=== PATIENT | female | born 1965 | race Caucasian/White ===

== ENCOUNTER 2022-07-13 22:57 | Observation (INO) | payer MEDICARE, MEDICAID, SELFPAY ==
[2022-07-13 23:04] VITALS: BP 85/53; PULSE 109; RESP 16; TEMP 36.3; O2SAT 94; BMI 19.7
--- NOTE | 2022-07-13 23:11 | ED_ITS ---
HPI - Fall General: Chief Complaint: Fall Stated Complaint: fall 3 days ago, back and side pain Time Seen by Provider: 07/13/22 23:11 History of Present Illness: 56-year-old female comes in today for complaints of generalized body ache and soreness. Patient reports over the weekend she was in the shower and slipped and fell hurting her back. Patient has a history of COPD, rheumatoid arthritis, Raynaud's phenomena, chronic smoker. Patient has darkening of her third and fourth digit on her right hand which she attributes to her Raynaud's phenomena. Patient has a dry necrotic area to the distal third finger. Patient does admit to using heating pads to the tops of her knees and her hands routinely. Patient does have discoloration to her hands and knees. Patient appears chronically ill. Patient responds appropriately to questions. Patient appears in mild pain. Patient reports all she uses is inhalers routinely for her COPD, but does not take any medicines for her rheumatoid arthritis. Patient has a history of erythromycin allergy but can take azithromycin. Reports that erythromycin just causes stomach upset. Associated symptoms-after fall: Denies chest pain Review of Systems Const: Reports: body aches Eyes: Denies: change in vision ENMT: Denies: throat pain Card: Denies: chest pain Resp: Denies: dyspnea GI: Denies: nausea or vomiting Skin/Breast: Reports: changes in skin color and other [facility] ED PFSH: Medical History (Updated 07/14/22 @ 02:20 by JEN Marcus) COPD (chronic obstructive pulmonary disease) Hepatitis RA (rheumatoid arthritis) Raynaud disease Surgical History (Updated 07/14/22 @ 02:15 by Bruno Desai MD) H/O neck surgery H/O: hysterectomy History of Social History (Updated 07/14/22 @ 02:20 by Bruno Desai MD) Smoking and tobacco status: current every day smoker Alcohol intake: former Physical Exam Const: COMMON NORMALS: alert HENMT: COMMON NORMALS: normocephalic HEAD & SCALP: normocephalic Neck/C-Spine: COMMON NORMALS: full ROM Resp: COMMON NORMALS: normal respiratory effort AUSCULTATION: rhonchi Cardio: COMMON NORMALS: regular rate and regular rhythm RATE: regular rate RHYTHM: regular rhythm GI: COMMON NORMALS: Soft to palpation and non-tender PALPATION: Yes Soft to palpation : COMMON NORMALS: Yes no CVA tenderness BLADDER/KIDNEY EXAM: Yes no CVA tenderness Back/Pelvis: COMMON NORMALS: no CVA tenderness THORACIC SPINE/UPPER BACK: No paraspinal muscle tenderness LUMBAR SPINE/LOWER BACK: No paraspinal muscle tenderness Extremity: RIGHT UPPER EXTREMITY: Yes hand & digits (Third and fourth digit are discolored, dry lesion distal third digit) Right hand and digits: Yes inspection, Yes palpation and Yes ROM exam Neuro: SENSORIUM/ORIENTATION: Yes alert Psych: COMMON NORMALS: cooperative Skin: COMMON NORMALS: negative for turgor normal GENERAL SKIN EXAM: decreased turgor Course Vital Signs: Vital signs: Vital Signs Temperature 97.4 F L 07/13/22 23:04 Pulse Rate 109 H 07/14/22 02:11 Respiratory Rate 21 H 07/14/22 02:11 Blood Pressure 82/60 07/14/22 02:11 Pulse Oximetry 92 07/14/22 02:11 Oxygen Delivery Me thod 07/14/22 02:11 MDM - Fall Medical Decision Making Patient came in today for weakness and fall on Monday. Since then she has had increasing pain to her right back. Patient did report some pain at that time of the fall. Patient has a history of rheumatoid arthritis, COPD, and Raynaud's phenomenon. On exam patient has decreased breath sounds in bilateral bases. Skin is warm and dry. Patient does have some discoloration in the hands. Initial blood pressure is 85 systolic, pulse oxygen is 94% on room air, heart rate is 109, patient is afebrile. Differential diagnosis includes sepsis, pneumonia, rib fracture, pneumothorax, compression fracture of the spine. Chest x-ray notes a right lower lobe pneumonia. Sodium was 134, potassium 3.3, CRP was 224, sed rate was 30. Reviewed patient with Dr. Schwartz he recommend we contact the hospitalist and discuss admission. Discussed admission with Dr. Desai who agreed to see patient for admission. Patient needs antibiotics, IV fluids, and monitoring for further decompensation from right lower lobe pneumonia. Lab Data : 07/14/22 01:18 07/14/22 01:18 Radiology Impressions Chest X-Ray 07/13/22 23:23 IMPRESSION: 1. Negative for traumatic injury to the chest. 2. Right lower lobe pneumonia. 3. Left mid lung field suspected somewhat focal airspace opacity may reflect a small pneumonic infiltrate, consider interval follow-up exam to ensure resolution. Pelvis X-Ray 07/13/22 23:23 IMPRESSION: 1. Negative for fracture or dislocation, if concern for fracture remains clinically consider further evaluation with a CT given patient's somewhat decreased bone mineral density. 2. Goim-zb-uxhnicfs constipation without bowel dilation to indicate obstruction. Lumbar Spine X-Ray 07/13/22 23:26 IMPRESSION: 1. Negative for fracture or dislocation. 2. Multilevel disc space narrowing and productive degenerative endplate changes throughout the spine. 3. Lumbar spine levoscoliosis. 4. Right lower lobe pneumonia suspected, chest x-ray could better evaluate this. Laboratory Results WBC 13.1 10^3/uL (4.0-10.0) H 07/14/22 01:18 Corrected WBC Cancelled 07/13/22 23:20 RBC 4.75 10^6/uL (4.1-5.3) 07/14/22 01:18 Hgb 13.6 g/dL (11.5-15.3) 07/14/22 01:18 Hct 42.6 % (37.0-47.0) 07/14/22 01:18 MCV 89.7 fl (81-99) 07/14/22 01:18 MCH 28.6 pg (28.0-34.0) 07/14/22 01:18 MCHC 31.9 g/dL (30.0-36.0) 07/14/22 01:18 RDW 13.6 % (12.1-15.1) 07/14/22 01:18 Plt Count 141 10^3/cmm (130-400) 07/14/22 01:18 MPV 11.1 fL (7.4-10.4) H 07/14/22 01:18 Gran % Cancelled 07/13/22 23:20 Neut % (Auto) 88.1 % 07/14/22 01:18 Lymph % (Auto) 4.7 % 07/14/22 01:18 [place] % (Auto) 5.7 % 07/14/22 01:18 Eos % (Auto) 0.1 % 07/14/22 01:18 Baso % (Auto) 0.9 % 07/14/22 01:18 Neut # (Auto) 11.52 10^3/uL (1.8-7.7) H 07/14/22 01:18 Lymph # (Auto) 0.6 10^3/uL (0.8-4.8) L 07/14/22 01:18 [place] # (Auto) 0.8 10^3/uL (0.2-0.9) 07/14/22 01:18 Eos # (Auto) 0.0 10^3/uL (0.0-0.8) 07/14/22 01:18 Baso # (Auto) 0.1 10^3/uL (0.0-0.1) 07/14/22 01:18 Absolute Gran (auto) Cancelled 07/13/22 23:20 Nucleated RBC % (auto) 0 % 07/14/22 01:18 Nucleated RBCs # 0.0 /100WBC 07/14/22 01:18 ESR 30 mm/hr (0-15) H 07/14/22 01:18 Sodium 134 mmol/L (136-145) L 07/14/22 01:18 Potassium 3.3 mmol/L (3.5-5.1) L 07/14/22 01:18 Chloride 97 mmol/L (98-107) L 07/14/22 01:18 Carbon Dioxide 23 mmol/L (22-29) 07/14/22 01:18 Anion Gap 17.3 (5-19) 07/14/22 01:18 BUN 27 mg/dL (6-20) H 07/14/22 01:18 Creatinine 0.8 mg/dL (0.5-0.9) 07/14/22 01:18 GFR Calculation 74.2 mL/min (90-130) L 07/14/22 01:18 Glucose 83 mg/dL (65-115) 07/14/22 01:18 Calculated Osmolality 282 mOsm/kg (285-295) L 07/14/22 01:18 Lactic Acid 1.8 mmol/L (0.5-2.2) 07/13/22 01:18 Calcium 8.8 mg/dL (8.5-10.5) 07/14/22 01:18 Total Bilirubin 1.1 mg/dL (0.15-1.2) 07/14/22 01:18 AST 47 U/L (0-32) H 07/14/22 01:18 ALT 50 U/L (0-33) H 07/14/22 01:18 Alkaline Phosphatase 234 U/L (35-105) H 07/14/22 01:18 C-Reactive Protein 224.2 mg/L (0.0-4.9) H 07/14/22 01:18 Total Protein 6.7 g/dL (6.6-8.7) 07/14/22 01:18 Albumin 2.8 g/dL (3.5-5.2) L 07/14/22 01:18 Globulin 3.9 g/dL (1.3-4.6) 07/14/22 01:18 Urine Color [place] (Yellow) 07/14/22 01:36 Urine Appearance Clear (CLEAR) 07/14/22 01:36 Urine pH 5 (5-7) 07/14/22 01:36 Ur Specific [place] 1.010 (1.005-1.030) 07/14/22 01:36 Urine Protein 1+ (Negative) H 07/14/22 01:36 Urine Glucose (UA) Norm (Normal) 07/14/22 01:36 Urine Ketones 1+ (Negative) H 07/14/22 01:36 Urine Blood Neg (Negative) 07/14/22 01:36 Urine Nitrate Positive (Negative) H 07/14/22 01:36 Urine Bilirubin 1+ (Negative) H 07/14/22 01:36 Urine Urobilinogen 8 mg/dL (Negative) H 07/14/22 01:36 Ur Leukocyte Esterase Trace (Negative) H 07/14/22 01:36 Urine RBC 0-4 /hpf (0-2) H 07/14/22 01:36 Urine WBC 5-10 /hpf (0-5) H 07/14/22 01:36 Ur Squamous Epith Cells 5-10 /hpf (0-5) H 07/14/22 01:36 Ur Transition Epith Cell 0-4 /hpf 07/14/22 01:36 Amorphous Sediment Not Reportable 07/14/22 01:36 Urine Bacteria 1+ /hpf (NONE) H 07/14/22 01:36 Discharge Plan Discharge Patient Disposition: Admitted As Inpatient Clinical Impression: Pneumonia Qualifiers: Pneumonia type: due to unspecified organism Laterality: right Lung location: lower lobe of lung Qualified Code(s): J18.9 - Pneumonia, unspecified organism Condition: Stable Coding Level of Care Code ED Returns Clerk for g Fwd Exam Comprehensive
--- NOTE | 2022-07-13 23:23 | XRR_ITS ---
PROCEDURE INFORMATION: Exam: XR Pelvis Exam date and time: 07/14/2022 12:30 AM Age: 56 years old Clinical indication: Pelvic pain; Additional info: Fall injury TECHNIQUE: Imaging protocol: Radiologic exam of the pelvis. Views: 1 or 2 view. COMPARISON: No relevant prior studies available. FINDINGS: Bones/joints: Unremarkable. No acute fracture. Soft tissues: Unremarkable. Gastrointestinal tract: Pgwy-eb-sstshwas constipation without bowel dilation to indicate obstruction. XR/XR pelvis 1-2V* [id number] IMPRESSION: 1. Negative for fracture or dislocation, if concern for fracture remains clinically consider further evaluation with a CT given patient's somewhat decreased bone mineral density. 2. Skzr-sx-pviwitwv constipation without bowel dilation to indicate obstruction.
--- NOTE | 2022-07-13 23:23 | XRR_ITS ---
PROCEDURE INFORMATION: Exam: XR Chest Exam date and time: 07/14/2022 12:28 AM Age: 56 years old Clinical indication: Pain; Chest pressure; Additional info: Fall TECHNIQUE: Imaging protocol: Radiologic exam of the chest. Views: 2 views. COMPARISON: No relevant prior studies available. FINDINGS: Lungs: Right lower lobe pneumonia. Left mid lung field suspected somewhat focal airspace opacity may reflect a small pneumonic infiltrate, consider interval follow-up exam to ensure resolution. Pleural spaces: Unremarkable. No pleural effusion. No pneumothorax. Heart/Mediastinum: Unremarkable. No cardiomegaly. Bones/joints: Unremarkable. XR/XR chest 2V* [id number] IMPRESSION: 1. Negative for traumatic injury to the chest. 2. Right lower lobe pneumonia. 3. Left mid lung field suspected somewhat focal airspace opacity may reflect a small pneumonic infiltrate, consider interval follow-up exam to ensure resolution.
--- NOTE | 2022-07-13 23:26 | XRR_ITS ---
PROCEDURE INFORMATION: Exam: XR Lumbosacral Spine Exam date and time: 07/14/2022 12:33 AM Age: 56 years old Clinical indication: Low back pain; Additional info: Fall injury TECHNIQUE: Imaging protocol: Radiologic exam of the lumbosacral spine. Views: 2 or 3 views. COMPARISON: CR (PELVIS, ) 07/14/2022 12:30 AM FINDINGS: Bones/joints: Multilevel disc space narrowing and productive degenerative endplate changes throughout the spine. Lumbar spine levoscoliosis. Soft tissues: Unremarkable. Lungs: Right lower lobe pneumonia suspected, chest x-ray could better evaluate this. XR/XR lumbar spine 2-3V* [id number] IMPRESSION: 1. Negative for fracture or dislocation. 2. Multilevel disc space narrowing and productive degenerative endplate changes throughout the spine. 3. Lumbar spine levoscoliosis. 4. Right lower lobe pneumonia suspected, chest x-ray could better evaluate this.
[2022-07-14] VITALS (100 sets, daily range): BP systolic 78–108; BP diastolic 48–71; PULSE 74–110; RESP 4–28; TEMP 36.3–37.1; O2SAT 86–95; BMI 19.7
[2022-07-14] MEDS: HYDROcodone-acetaminophen 5-325 mg Tablet 1 TAB PO (00:33)
[2022-07-14] MEDS: sodium chloride 0.9% 1,000 ML 999 ML IV ×2 (01:20→04:12)
[2022-07-14] MEDS: ondansetron 2 mg/ML SDV 2 mL 4 MG IVP ×2 (01:24→06:08)
[2022-07-14 01:38] LABS: Erythrocyte Sedimentation Rate 30 mm/hr (0-15)
[2022-07-14 01:50] LABS: Lactic Sepsis W/Reflex 1.8 mmol/L (0.5-2.2)
[2022-07-14 01:51] LABS: Alanine Aminotransferase 50 U/L (0-33); Albumin Level 2.8 g/dL (3.5-5.2); Alkaline Phosphatase 234 U/L (35-105); Anion Gap 17.3 (5-19); Aspartate Amino Transferase 47 U/L (0-32); Blood Urea Nitrogen 27 mg/dL (6-20); C Reactive Protein 224.2 mg/L (0.0-4.9); Calcium 8.8 mg/dL (8.5-10.5); Carbon Dioxide 23 mmol/L (22-29); Chloride 97 mmol/L (98-107); Globulin 3.9 g/dL (1.3-4.6); Glomerular Filtration Rate 74.2 mL/min (90-130); Glucose 83 mg/dL (65-115); Osmolality Calculated 282 mOsm/kg (285-295); Potassium 3.3 mmol/L (3.5-5.1); Sodium 134 mmol/L (136-145); Total Bilirubin 1.1 mg/dL (0.15-1.2); Total Protein 6.7 g/dL (6.6-8.7)
[2022-07-14] MEDS: cefTRIAXone 1,000 MG in sodium chloride 0.9% (plus) 50 ML 100 MG IV (01:56)
[2022-07-14] MEDS: morphine 4 mg/mL SDV 1 mL 2 MG IVP ×3 (02:03→22:51)
[2022-07-14 02:13] LABS: Basophils # 0.1 10^3/uL (0.0-0.1); Basophils % 0.9 %; Eosinophils % 0.1 %; Hematocrit 42.6 % (37.0-47.0); Hemoglobin 13.6 g/dL (11.5-15.3); Lymphocytes # 0.6 10^3/uL (0.8-4.8); Lymphocytes % 4.7 %; Mean Corpuscular HGB Conc 31.9 g/dL (30.0-36.0); Mean Corpuscular Hemoglobin 28.6 pg (28.0-34.0); Mean Corpuscular Volume 89.7 fl (81-99); Mean Platelet Volume 11.1 fL (7.4-10.4); Monocytes # 0.8 10^3/uL (0.2-0.9); Monocytes % 5.7 %; Neutrophils # 11.52 10^3/uL (1.8-7.7); Neutrophils % 88.1 %; Nucleated Red Blood Cells % 0 %; Platelet Count 141 10^3/cmm (130-400); Red Blood Count 4.75 10^6/uL (4.1-5.3); Red Cell Distribution Width 13.6 % (12.1-15.1); White Blood Count 13.1 10^3/uL (4.0-10.0)
[2022-07-14 02:14] LABS: Slide Review Slide Review Perform
[2022-07-14 02:17] LABS: Urine Appearance Clear (CLEAR); Urine Color Orange (Yellow)
[2022-07-14 02:18] LABS: Add Urine Microscopic? YES; Bilirubin Urine 1+ (Negative); Blood Urine Neg (Negative); Glucose Urine UA Norm (Normal); Ketones Urine 1+ (Negative); Leukocyte Esterase Urine Trace (Negative); Nitrate Urine Positive (Negative); Protein Urine 1+ (Negative); Urobilinogen Urine 8 mg/dL (Negative); pH Urine 5 (5-7)
[2022-07-14 02:22] LABS: Add Urine Culture? Yes; Bacteria Urine 1+ /hpf; RBC Urine 0-4 /hpf (0-2); Transitional Epi Cells Urine 0-4 /hpf
[2022-07-14] MEDS: azithromycin 500 MG in sodium chloride 0.9% 250 ML 250 MG IV (02:29)
[2022-07-14 02:33] LABS: Cortisol Random 22.38 ug/dL (2.47-19.5)
[2022-07-14 02:42] LABS: SARS Covid-2 Antigen negative (Negative)
--- NOTE | 2022-07-14 02:44 | PM.HP ---
Providers/Chief Complaint Admitting Physician: Bruno Desai Primary Care Provider: LARRY Lane Chief Complaint: fall 3 days ago, back and side pain History of Present Illness Pleasant 56-year-old lady with history of Raynaud's disease, rheumatoid arthritis, smoking addiction, presents to the hospital due to several days of feeling unwell, she has been having productive cough, she also fell in the bathroom when she was trying to clean an area of swelling on the mid posterior right forearm which has been swelling over the last several days. There is no ulceration or drainage at that area. She reports also has been having issues with Raynaud's disease for a long time. About a week ago she states she was washing dishes and scraped the tip of the right middle finger, which had swelled up, had some bruising distally. Callus formation distally, but feels has never really healed up well. He has had some persistent swelling and paresthesia in it. She states that she still smokes, has been trying to cut down, currently down to 3 cigarettes/day. In the ER she is noted hypotensive, blood pressure 85/53, has been receiving a bolus. Currently arterial pressure 62 mmHg. She does feel also like she has been having a UTI. Review of Systems Const: Denies: fever(s), chills, body aches or malaise Eyes: Denies: change in vision, eye discomfort or eye redness ENMT: Denies: throat pain, oral sores or ear or mastoid pain Card: Denies: chest pain, edema, pre-syncope or dyspnea on exertion Resp: Denies: dyspnea, productive cough, change in phlegm color or hemoptysis GI: Denies: abdominal pain, nausea, vomiting, diarrhea, constipation, hematochezia or melena : Denies: flank pain, urinary frequency or hematuria Musc: Denies: back pain, joint swelling or joint redness Skin/Breast: Denies: rash or new lesions Neuro: Denies: headache(s), numbness in extremities, weakness in extremities, dizziness, confusion or seizure-like activity Endo: Denies: polyuria or polydipsia Manoj/Lymph: Denies: easy bleeding or tender lymph nodes All/Imm: Denies: urticaria or tongue swelling Medications/Allergies Allergies Allergy/AdvReac Type Severity Reaction Status Date / Time erythromycin base Allergy Unknown Unknown Verified 11/10/22 02:17 propoxyphene [From Darvon-N] Allergy Unknown Unknown Verified 07/14/22 02:18 PFSH Acute PFSH: Medical History (Updated 07/14/22 @ 02:53 by Bruno Desai MD) COPD (chronic obstructive pulmonary disease) Hepatitis RA (rheumatoid arthritis) Raynaud disease Surgical History (Updated 07/14/22 @ 02:15 by Bruno Desai MD) H/O neck surgery H/O: hysterectomy History of Family History (Updated 07/14/22 @ 02:57 by Bruno Desai MD) Mother CHF (congestive heart failure) Social History (Updated 07/14/22 @ 03:06 by Bruno Desai MD) Smoking and tobacco status: current every day smoker Alcohol intake: former Substance/Drug Use: never Lives independently: Yes Household members: other Details: daughter Marital status: Vitals/I&O/Wt Last Vital Signs Temp 97.4 F L 07/13/22 23:04 Pulse 109 H 07/14/22 02:11 Resp 21 H 07/14/22 02:11 BP 82/60 07/14/22 02:11 Pulse Ox 92 07/14/22 02:11 O2 Del Method 07/14/22 02:11 Weight last 48 hrs Weight 55.338 kg Physical Exam Const: COMMON NORMALS: patient oriented x3 and alert GENERAL APPEARANCE: cooperative ORIENTATION/CONSCIOUSNESS: Yes awake HENMT: COMMON NORMALS: oropharynx normal Neck/C-Spine: COMMON NORMALS: no JVD Resp: COMMON NORMALS: normal respiratory effort and clear to auscultation bilaterally AUSCULTATION: clear to auscultation bilaterally Cardio: COMMON NORMALS: no JVD, regular rhythm, S1 normal heart sound present, S2 normal heart sound present and No murmurs present (Cardio) RHYTHM: regular rhythm HEART SOUNDS: S1 normal heart sound present and S2 normal heart sound present GI: COMMON NORMALS: Normal to inspection, nondistended, normoactive bowel sounds present, Soft to palpation and non-tender PALPATION: Yes Soft to palpation Extremity: COMMON NORMALS: no joint enlargement and no pedal edema Neuro: COMMON NORMALS: patient oriented x3 and moves all extremities SENSORIUM/ORIENTATION: Yes alert Skin: GENERAL SKIN EXAM: erythema (hands and feet) LESIONS: lesion noted (callus/dry ulceration distal 3rd finger. Swelling of digit. Distal bruising) OTHER: Round area of swelling mid-post R forarm, no fluctuance, no ulceration Sepsis: Is patient septic: Yes Focused sepsis exam performed: Yes Data : 07/14/22 01:18 07/14/22 01:18 Micro: Microbiology 07/13/22 01:20 Blood Culture - Preliminary Blood SPECIMEN COLLECTED 07/13/22 01:18 Blood Culture - Preliminary Blood SPECIMEN COLLECTED A&P Assessment and plan (1) Sepsis: Sepsis with leukocytosis 13.1, sinus tachycardia 109. Possible septic shock, hypotensive. He reports chronic hypotension, low blood pressure appears may be lower than usual. With possible endorgan injury with transaminitis, BUN elevation. Lactic acid not elevated. Blood cultures collected, received ceftriaxone, azithromycin. Continue Lozano antibiotics for pulmonary source with right lower lobe pneumonia. Additionally assess right forearm around area of swelling for any abscess. Additionally assess right hand third finger due to persistent swelling, paresthesia, fingertip ulceration. Additionally possible UTI, she subjectively feels like she is having UTI. UA with positive nitrate, 5-10 WBC. 1+ bacteria. Urine culture in process. Complete fluid bolus. At risk of adrenal insufficiency as well with history of RA, COPD, past steroid therapy. We will give 1 dose of hydrocortisone at this time given persistent hypotension, assess serum cortisol level. (2) Pneumonia: Right lower lobe. As above. Collect sputum cultures, urine bacterial antigens. Check MRSA PCR. Rapid antigen COVID-19 negative, does not have other symptoms that may suggest COVID Qualifiers: Laterality: right Lung location: lower lobe of lung Pneumonia type: due to unspecified organism Qualified Code(s): J18.9 - Pneumonia, unspecified organism (3) Localized swelling of right forearm: Tender to touch. No fluctuance. No ulceration or drainage. Assess limited soft tissue/extremity ultrasound to exclude abscess. (4) Ulceration localized to fingertip: She states for 1-2 weeks, with some swelling of the right third finger. Some distal bruising. Paresthesia. She does have quite severe Raynaud's. She states that it started with abrasion while washing dishes. She does smoke. May be secondary to severe Raynaud's, or possibly raise concern for thromboangiitis obliterans/Buerger's disease. Will additionally assess with CT of the hand, and assess arterial duplex, segmental pressures including finger pressure. She needs to quit smoking, which she is aware, states that she has been cutting down, currently down to 3 cigarettes a day. Continue to encourage complete cessation. (5) Transaminitis: Unclear duration of transaminitis. Hepatitis noted in one of the old charts. We will check acute hepatitis panel. Follow-up liver parameters. Additionally possibility of shock liver with hypotension, sepsis, possible septic shock. As above. Does have alkaline phosphatase elevation as well, T bili normal. Does not have abdominal tenderness. Follow-up level. Will obtain gallbladder ultrasound. (6) Hypotension: Reports at home usually chronic hypotension, blood pressures on a good day run in low 90s. However currently appears lower than usual. MAP down to 62. Complete bolus and additional management as above for possible septic shock. (7) Smoking addiction: Discussed smoking cessation with her for 4 minutes. She has been cutting down and is down to 3 cigarettes a day. Encourage complete cessation. Nicotine replacement as needed. (8) UTI (urinary tract infection): Subjectively feels like she is having UTI. UA with nitrate positive, 5-10 WBC, 1+ bacteria. Urine culture in process. Ceftriaxone. (9) Fall: Fall at home, suspect secondary to hypotension. Bedrest at this time. Monitor blood pressures. Consider PT assessment once she is more stable. (10) Constipation: Incident noted on imaging. We will add bowel regimen. Plan Hypokalemia: Replace. Check magnesium. DDD RA: Not currently taking any medications Raynaud's disease COPD Hepatitis history: Acute hepatitis panel requested, history noted incidentally in old chart. Will need follow-up. Attestations Medical Necessity Statement*: Admission of over 2 midnights anticipated versus management of sepsis, septic shock, pneumonia, additional comorbidities as above. Critical Care Time: The high probability of a clinically significant, sudden or life threatening deterioration of the patient's hemodynamic, infectious disease, system(s) required my full and direct attention, intervention and personal management. The critical care time is as shown. This time is in addition to time spent performing any reported procedures but includes the following: x Data and vital sign review and interpretation x Patient assessment, examination and intervention x Documentation x Medication orders and management Critical Care Time (min): 50 Coding Level of Care Code Acute Ammonium Hydroxide Operator for Chg Fwd Exam Comprehensive Diagnoses Sepsis A41.9 Pneumonia J18.9 Laterality: right Lung location: lower lobe of lung Pneumonia type: due to unspecified organism Localized swelling of right forearm R22.31 Ulceration localized to fingertip L98.499 Transaminitis R74.01 Hypotension I95.9 Smoking addiction F17.200 UTI (urinary tract infection) N39.0 Fall W19.XXXA Constipation K59.00
--- NOTE | 2022-07-14 03:48 | USR_ITS ---
PROCEDURE INFORMATION: Exam: US Unlisted Ultrasound Procedure Exam date and time: 07/14/2022 4:53 AM Age: 56 years old Clinical indication: Pain: Painful lump due to spider bite; Patient HX: Painful lump posterior right forearm C/O spider bite; Additional info: R forearm swelling, assess for abscess TECHNIQUE: Imaging protocol: Unlisted ultrasound procedure (eg, diagnostic, interventional). COMPARISON: No relevant prior studies available. FINDINGS: Procedural imaging: Examination is based on the submission of 5 images. A measured oval isoechoic or slightly hypoechoic heterogeneous partially marginated structure within the subcutaneous soft tissues of the labeled posterior forearm measures 1.6 x 0.9 x 1.8 cm. The lesion does not demonstrate fluid echogenicity or cystic structure. Limited Doppler assessment without hypervascularity. US/US soft tissue/extremity [id number] IMPRESSION: Oval heterogeneous non-cystic and non fluid containing soft tissue area echogenicity change or nonspecific inflammatory focus.
--- NOTE | 2022-07-14 03:48 | CTR_ITS ---
PROCEDURE INFORMATION: Exam: CT Right Upper Extremity With Contrast, Hand Exam date and time: 07/14/2022 4:15 AM Age: 56 years old Clinical indication: Fingers; Right; Patient HX: Patient with raynauds was washing dishes with hot water and accidentally burned the tip of RT 3rd digit. Small burn wound with redness and swelling to distal phalange. ; Additional info: Assess for any abscess R 3rd finger TECHNIQUE: Imaging protocol: Computed tomography of the Right upper extremity with contrast. Exam focused on the hand. Radiation optimization: All CT scans at this facility use at least one of these dose optimization techniques: automated exposure control; mA and/or kV adjustment per patient size (includes targeted exams where dose is matched to clinical indication); or iterative reconstruction. Contrast material: OMNI 350; Contrast volume: 100 ml; Contrast route: INTRAVENOUS (IV); COMPARISON: No relevant prior studies available. RADIATION DOSE METRICS: Total DLP (mGy-cm): 258.81 FINDINGS: Bones/joints: Irregularity and potential partial absence of the cortex at the distal margin of the distal phalanx 3rd digit underlying an area of blunted soft tissue distortion or wound/volume loss. Soft tissues: Diffuse soft tissue edema or thickening of multiple digits of the right hand. Diffuse extensive soft tissue vascular calcifications. No soft tissue gas. Other findings: No definite peripherally enhancing fluid collection to suggest small abscess although MRI would yield a higher level of diagnostic sensitivity. CT/CT hand [place] w con [id number] IMPRESSION: 1. Multiple digit soft tissue thickening or edema slightly more accentuated at the 3rd digit dorsally and distally. 2. No definite peripherally enhancing fluid collection to suggest abscess. 3. Lucency and potential cortical thinning or destruction of the distal margin of the distal phalanx 3rd digit which may be suggestive of potential early changes of osteomyelitis. Adjacent soft tissue distortion and irregularity. Consider MRI for a higher level of diagnostic specificity. Findings require correlation to CR series. 4. Extensive soft tissue linear calcifications which may be vascular in origin.
--- NOTE | 2022-07-14 03:48 | USR_ITS ---
PROCEDURE INFORMATION: Exam: US Abdomen, Limited; Right Upper Quadrant Exam date and time: 07/14/2022 4:31 AM Age: 56 years old Clinical indication: Abdominal pain; Flank; Right; Prior surgery; Surgery date: 6+ months; Surgery type: [place] 2017; Additional info: Elev ap, sepsis, septic shock TECHNIQUE: Imaging protocol: Real time ultrasound of the abdomen with image documentation. Limited exam focused on the right upper quadrant. COMPARISON: No relevant prior studies available. FINDINGS: Pleural spaces: Right pleural effusion. Liver: Longitudinal liver diameter 17.4 cm. Gallbladder: The gallbladder is not visualized by history submitted is surgically absent. Biliary ducts: Common bile duct diameter 0.7 cm. Pancreas: Visualized pancreas is unremarkable. Right kidney: The right kidney measures 12.5 x 6.1 x 5.6 cm. No overt hydronephrosis. Increased echogenicity of the cortex. Aorta: Proximal abdominal aorta diameter 2.5 cm. Mid aorta diameter 2.0 cm. Distal aorta diameter 1.8 cm. Inferior vena cava: Inferior vena cava is visualized measuring 2.5 cm. Portal venous: Hepatopetal flow within the main portal vein. Intraperitoneal space: Small collection of fluid right abdomen. US/US gall bladder [id number] IMPRESSION: 1. The gallbladder is not visualized by history is surgically absent. 2. Small right pleural effusion. 3. Minimal focal free fluid right abdomen.
--- NOTE | 2022-07-14 03:48 | USR_ITS ---
PROCEDURE INFORMATION: Exam: US Duplex Right Upper Extremity Arteries Exam date and time: 07/14/2022 5:51 AM Age: 56 years old Clinical indication: Injury or trauma; Fall; Crushing injury; Additional info: Assess for pad/arterial insufficiency distal rue TECHNIQUE: Imaging protocol: Right Real-time ultrasound scan of the arteries of the right upper extremity with 2-D rick scale, color Doppler flow and spectral waveform analysis. COMPARISON: CT hand RT w con [id number] 07/14/2022 4:15 AM FINDINGS: Right subclavian artery: No occlusion or significant stenosis. Normal waveform. Right axillary artery: No occlusion or significant stenosis. Normal waveform. Right brachial artery: No occlusion or significant stenosis. Normal waveform. Right radial artery: No occlusion or significant stenosis. Normal waveform. Right ulnar artery: No occlusion or significant stenosis. Normal waveform more proximally. The most distal ulnar artery demonstrates diminutive caliber and diminutive flow velocity at 16.3 cm US/[place] [id number] IMPRESSION: 1. Patency of arterial structures without high-grade stenosis or significant atherosclerotic occlusive changes to a level of the ulnar and radial arteries. 2. Diminutive flow velocity and diminutive waveform pattern of the distal right ulnar artery. Findings may imply significant most distal small-vessel occlusive changes.
[2022-07-14] MEDS: hydrocortisone 100 mg/2 mL SDV IVP (04:12)
[2022-07-14] MEDS: enoxaparin 40 mg/0.4 mL Syringe SUBCUT (04:12)
[2022-07-14] MEDS: pantoprazole DR 40 mg Tablet PO (04:13)
[2022-07-14] MEDS: potassium chloride ER 20 mEq Tablet 40 MEQ PO (04:13)
[2022-07-14] MEDS: iohexol 350 mg/mL 500 mL Btl (per mL) IV (04:21)
[2022-07-14 04:24] LABS: Magnesium 2.3 mg/dL (1.7-2.3)
[2022-07-14 04:37] LABS: Hepatitis A Antibody IgM Non-Reactive (Nonreactive); Hepatitis B Core IgM Non-Reactive (Nonreactive); Hepatitis B Surface Antigen Non-Reactive (Nonreactive)
--- NOTE | 2022-07-14 05:05 | PC.NURSE ---
Pain Medication request Pt c/o 04/13 pain in her chest/ abd post gallbladder ultrasound. Contacted Dr Desai re: pain medication request and d/c of ns 500ml order. Per verbal order cx ns 500ml. He will put in pain med order.
[2022-07-14 05:12] LABS: Hepatitis C Virus Antibody Reactive (Nonreactive)
--- NOTE | 2022-07-14 07:40 | PC.NURSE ---
report called to ashley in ICU
[2022-07-14] MEDS: polyethylene glycol 3350 Pkt 17 gm PO (09:18)
[2022-07-14] MEDS: acetaminophen 325 mg Tablet 650 MG PO (10:58)
[2022-07-14] MEDS: nicotine 4 mg lozenge MUCOUS MEM (11:34)
[2022-07-14] MEDS: sodium chloride 0.9% 500 ML IV (11:37)
[2022-07-14] MEDS: lidocaine 2% viscous 15 ML, aluminum-mag hydrox-simethicon 30 ML, sucralfate oral liq 1 GM PO (12:28)
--- NOTE | 2022-07-14 14:25 | PM.PN ---
Subjective Subjective: Patient was seen and examined this morning, she was complaining of right sided minimal chest pain. She has been afebrile, blood pressure has been slightly soft, requiring 500 cc normal saline fluid bolus. We will put on maintenance IV fluid. Her other vitals and labs have been reviewed. Medications: Medication Review Details: Generic Name Dose Route Start Last Admin Trade Name Freq PRN Reason Stop Dose Admin Acetaminophen 650 mg 07/14/22 03:48 07/14/22 10:58 Acetaminophen 32 5 Mg Tablet PO 650 mg Q6H PRN Administration Mild/Mod Pain Or Temp >/= 101 Enoxaparin Sodium 40 mg 07/14/22 03:48 07/14/22 04:12 Enoxaparin 40 Mg /0.4 Ml Syringe SUBCUT 40 mg Q24H KING Administration Lidocaine 1 patch 07/14/22 12:00 07/14/22 12:13 Lidocaine 5% Pat ch TOPICAL Not Given [id number] KING Morphine Sulfate 2 mg 07/14/22 04:55 07/14/22 05:14 Morphine 4 Mg/Ml Sdv 1 Ml IVP 2 mg Q4H PRN Administration SEVERE PAIN Nicotine Polacrile x 4 mg 07/14/22 03:48 07/14/22 11:34 Nicotine 4 Mg Lo zenge MUCOUS MEM 4 mg Q4H PRN Administration NICOTINE CRAVINGS Ondansetron HCl 4 mg 07/14/22 03:48 07/14/22 06:08 Ondansetron 2 Mg /Ml Sdv 2 Ml IVP 4 mg Q8H PRN Administration vomiting, or N/V if npo Pantoprazole Sodiu m 40 mg 07/14/22 03:48 07/14/22 04:[address] 40 Mg Tablet PO 40 mg DAILY KING Administration Polyethylene Glyco l 17 gm 07/14/22 09:00 07/14/22 09:18 Polyethylene Gly col 3350 Pkt 17 Gm PO 17 gm BID KING Administration Vitals/I&O/Wt Last Vital Signs Temp 97.9 F 07/14/22 09:00 Pulse 91 07/14/22 13:05 Resp 12 07/14/22 13:05 BP 93/57 07/14/22 13:05 Pulse Ox 89 L 07/14/22 13:05 O2 Del Method 07/14/22 13:05 11/05/2607/14/22 07/14/22 22:59 06:59 14:59 Intake Total 2640 / 2640 620 / 620 Output Total 450 / 450 Balance 2190 / 2190 620 / 620 Weight last 48 hrs Weight 55.338 kg Weight 55.338 kg Physical Exam Const: COMMON NORMALS: patient oriented x3 Resp: COMMON NORMALS: clear to auscultation bilaterally EFFORT & INSPECTION: Yes symmetric chest movement AUSCULTATION: clear to auscultation bilaterally Cardio: COMMON NORMALS: regular rate, regular rhythm, S1 normal heart sound present, S2 normal heart sound present, No gallops present (Cardio), No murmurs present (Cardio), No rub (Cardio) and Peripheral pulses 2+ throughout RATE: regular rate RHYTHM: regular rhythm HEART SOUNDS: S1 normal heart sound present and S2 normal heart sound present PERIPHERAL PULSES: Peripheral pulses 2+ throughout GI: COMMON NORMALS: Normal to inspection, nondistended, normoactive bowel sounds present, Soft to palpation, non-tender, No hepatosplenomegaly present and no masses AUSCULTATION: Yes normoactive bowel sounds PALPATION: Yes Soft to palpation and Yes No hepatosplenomegaly present RECTAL EXAM: deferred Extremity: COMMON NORMALS: no clubbing, cyanosis or edema and no pedal edema NARRATIVE EXTREMITY EXAM: Noted redness and swelling in the mid right posterior forearm, right third digit of hand: Has dry ulcer, with some swelling Neuro: COMMON NORMALS: patient oriented x3 Data : 07/14/22 01:18 07/14/22 01:18 Micro: Microbiology 07/14/22 06:01 MRSA Culture - Final Nose 07/14/22 01:36 Legionella Urinary Antigen - Final Urine,Clean Catch Bacterial Antigens - Final 07/13/22 01:20 Blood Culture - Preliminary Blood SPECIMEN COLLECTED 07/13/22 01:18 Blood Culture - Preliminary Blood SPECIMEN COLLECTED A&P Assessment and plan (1) UTI (urinary tract infection): (2) Sepsis: (3) Pneumonia: Qualifiers: Laterality: right Lung location: lower lobe of lung Pneumonia type: due to unspecified organism Qualified Code(s): J18.9 - Pneumonia, unspecified organism (4) Transaminitis: (5) Fall: Plan 56-year-old female with past medical history of RA, Raynaud's disease smoking addiction, was brought in with chief complaint of productive cough, patient also states that she has recent history of a spider bite which has resulted in right posterior forearm redness and swelling. Upon arrival in the ER she was found to be hypotensive requiring fluid boluses. Currently she is being managed for: Assessment Severe sepsis: Likely secondary to pneumonia, UTI: Transaminitis: Likely secondary to hep C Right third digit fingertip ulceration History of RA History of Raynaud's Transaminitis Fall Smoking addiction Plan: X-ray chest: Right lower lobe infiltrates, Left mid lung field suspected somewhat focal airspace opacity may reflect a small pneumonic infiltrate no rib fracture. Blood culture Urine culture Soft tissue ultrasound has failed to show any abscess CT hand right without contrast: Multiple digit soft tissue thickening or edema slightly more accentuated at the 3rd digit dorsally and distally.No definite peripherally enhancing fluid collection to suggest abscess. Lucency and potential cortical thinning or destruction of the distal margin of the distal phalanx 3rd digit which may be suggestive of potential early changes of osteomyelitis.? Arterial duplex right upper extremity: Patency of arterial structures without high-grade stenosis or significant atherosclerotic occlusive changes to a level of the ulnar and radial arteries.Diminutive flow velocity and diminutive waveform pattern of the distal right ulnar artery. Findings may imply significant most distal small-vessel occlusive changes. 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 Findings may imply significant most distal small-vessel occlusive changes. Taken the clinical picture into account, I will attribute these changes as a combination of her Raynaud's disease, vascular changes secondary to her longstanding smoking, currently, hep C vasculitis could be other consideration, her ESR CRP is elevated Will empirically discharge her on p.o. antibiotics for 2 weeks, and let her follow-up with wound care clinic as outpatient, to assess the response to the antibiotic. Currently we will continue with ceftriaxone and azithromycin for now. Mupirocin for MRSA nare For history of hep C: Follow hep C RNA PCR: Make outpatient GI appointment for: Further management. 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
[2022-07-14] MEDS: sodium chloride 0.9% 1,000 ML 75 ML IV (14:51)
--- NOTE | 2022-07-14 17:23 | PC.NURSE ---
1700 patient transferred to second floor room 278-2.Waited for patient to use commode in room and return to bed, to ensure patient safety. Patient chart left with staff at [facility] [employer] front desk clerk. Patient had no complaints at time of transfer. Patient resting comfortably in bed with belongings at bedside.
--- NOTE | 2022-07-14 19:06 | PC.NURSE ---
Report given to Mikayla FOSTER
[2022-07-15] VITALS: BP 95/60; PULSE 101; RESP 21; TEMP 37.1; O2SAT 93
[2022-07-15] MEDS: cefTRIAXone 1,000 MG in sodium chloride 0.9% (plus) 50 ML 100 MG IV (00:55)
[2022-07-15] MEDS: azithromycin 500 MG in sodium chloride 0.9% 250 ML 250 MG IV (02:15)
[2022-07-15] MEDS: enoxaparin 40 mg/0.4 mL Syringe SUBCUT (03:42)
[2022-07-15] MEDS: sodium chloride 0.9% 1,000 ML 75 ML IV (03:42)
[2022-07-15 03:56] VITALS: RESP 20
[2022-07-15] MEDS: morphine 4 mg/mL SDV 1 mL 2 MG IVP (03:56)
[2022-07-15 04:00] VITALS: BP 92/59; PULSE 85; RESP 24; TEMP 37.6; O2SAT 97
--- NOTE | 2022-07-15 04:16 | CTR_ITS ---
PROCEDURE INFORMATION: Exam: CT Abdomen And Pelvis Without Contrast Exam date and time: 07/15/2022 5:34 AM Age: 56 years old Clinical indication: Abdominal pain; Right; Prior surgery; Surgery type: Hysterectomy. Csection. Patient HX: C/O RT flank pain. Positive serology for hepatitis c. ; Additional info: R flank pain, assess for pyelo TECHNIQUE: Imaging protocol: Computed tomography of the abdomen and pelvis without contrast. Radiation optimization: All CT scans at this facility use at least one of these dose optimization techniques: automated exposure control; mA and/or kV adjustment per patient size (includes targeted exams where dose is matched to clinical indication); or iterative reconstruction. COMPARISON: US gall bladder [id number] 07/14/2022 4:31 AM RADIATION DOSE METRICS: Total DLP (mGy-cm): 324.12 FINDINGS: Lungs: There is a background of emphysema, bronchiectasis and mild pulmonary fibrosis. There are patchy opacities seen in the lower hemithoraces bilaterally and some consolidation seen in the right lower hemithorax superimposed over a right pleural effusion, findings suggesting a patchy bilateral pneumonia, right worse than left. Heart: There is an anterior pericardial effusion. Liver: Normal. No mass. Gallbladder and bile ducts: Status post cholecystectomy. Pancreas: Normal. No ductal dilation. Spleen: Normal. No splenomegaly. Adrenal glands: Normal. No mass. Kidneys and ureters: Strandy opacities are seen in the perinephric fascia bilaterally likely representing chronic scarring. Patchy hyperdensities are seen within the kidneys bilaterally, left more prominent than right with areas of hypoattenuation seen in the posterior and inferior pole of the right kidney, findings that could represent bilateral pyelonephritis. Stomach and bowel: Unremarkable. No obstruction. No mucosal thickening. Appendix: The appendix is visualized and is normal in configuration. Intraperitoneal space: Unremarkable. No free air. No significant fluid collection. Vasculature: Unremarkable. No abdominal aortic aneurysm. Lymph nodes: Unremarkable. No enlarged lymph nodes. Urinary bladder: Unremarkable as visualized. Reproductive: Unremarkable as visualized. Bones/joints: Unremarkable. No acute fracture. Soft tissues: Unremarkable. CT/CT kidney stone [id number] IMPRESSION: 1. Heterogeneous hypo and hyperdensities within the kidneys bilaterally, findings that could represent a bilateral pyelonephritis. 2. Background emphysema, bronchiectasis and pulmonary fibrosis. 3. Patchy opacities are seen in the lower hemithoraces bilaterally with consolidation seen in the right lower hemithorax superimposed over small right pleural effusion, findings suggesting a bilateral pneumonia, right more prominent than left. 4. Small anterior pericardial effusion
[2022-07-15 06:00] VITALS: BMI 19.7
[2022-07-15 08:00] VITALS: BP 92/58; PULSE 111; PULSE 62; RESP 18; TEMP 36.8; O2SAT 91; O2SAT 93
[2022-07-15 09:25] LABS: Basophils # 0.1 10^3/uL (0.0-0.1); Basophils % 0.5 %; Eosinophils % 0.3 %; Hematocrit 42.9 % (37.0-47.0); Hemoglobin 13.3 g/dL (11.5-15.3); Lymphocytes # 0.4 10^3/uL (0.8-4.8); Lymphocytes % 3.5 %; Mean Corpuscular Hemoglobin 28.9 pg (28.0-34.0); Mean Corpuscular Volume 93.3 fl (81-99); Mean Platelet Volume 10.5 fL (7.4-10.4); Monocytes # 0.7 10^3/uL (0.2-0.9); Monocytes % 5.4 %; Neutrophils # 11.32 10^3/uL (1.8-7.7); Neutrophils % 89.3 %; Nucleated Red Blood Cells % 0 %; Platelet Count 172 10^3/cmm (130-400); Red Cell Distribution Width 14.2 % (12.1-15.1); White Blood Count 12.7 10^3/uL (4.0-10.0)
[2022-07-15 09:43] LABS: Alanine Aminotransferase 30 U/L (0-33); Albumin Level 2.1 g/dL (3.5-5.2); Alkaline Phosphatase 137 U/L (35-105); Aspartate Amino Transferase 22 U/L (0-32); Blood Urea Nitrogen 10 mg/dL (6-20); Calcium 8.3 mg/dL (8.5-10.5); Carbon Dioxide 22 mmol/L (22-29); Chloride 108 mmol/L (98-107); Globulin 3.7 g/dL (1.3-4.6); Glomerular Filtration Rate 127.6 mL/min (90-130); Glucose 104 mg/dL (65-115); Osmolality Calculated 289 mOsm/kg (285-295); Sodium 140 mmol/L (136-145); Total Bilirubin 0.6 mg/dL (0.15-1.2); Total Protein 5.8 g/dL (6.6-8.7)
[2022-07-15 09:45] LABS: Anion Gap 13.5 (5-19); Potassium 3.5 mmol/L (3.5-5.1)
[2022-07-15 09:50] LABS: Procalcitonin 2.52 ng/mL (0-0.5)
--- NOTE | 2022-07-15 10:42 | P.PN_ITS ---
Subjective Subjective: Patient was seen and examined this morning, she was afebrile overnight, WBC count is slowly trending down.Overall has maintained a decent MAP. Patient was very adamant to go to home, the reason she gave was that she do not like hospitals. We tried to explain her the importance of being in the [facility] given her current medical situation. But patient unfortunately did not agreed to stay and she signed out AMA. On discharge patient was prescribed 2 weeks of ciprofloxacin as well as 2 weeks of Zyvox. She is assured that she will follow with wound care as well as primary care physician as outpatient. Medications: Medication Review Details: Generic Name Dose Route Start Last Admin Trade Name Freq PRN Reason Stop Dose Admin Acetaminophen 650 mg 07/14/22 03:48 07/14/22 10:58 Acetaminophen 32 5 Mg Tablet PO 650 mg Q6H PRN Administration Mild/Mod Pain Or Temp >/= 101 Enoxaparin Sodium 40 mg 07/14/22 03:48 07/15/22 03:42 Enoxaparin 40 Mg /0.4 Ml Syringe SUBCUT 40 mg Q24H KING Administration Ceftriaxone Sodium 1,000 mg/ 50 mls @ 100 mls/ hr 07/15/22 01:30 07/15/22 02:34 Sodium Chloride IV Infused Q24H KING Infusion Protocol Azithromycin 500 m g/ Sodium 250 mls @ 250 mls /hr 07/15/22 01:30 07/15/22 03:36 Chloride IV Infused Q24H KING Infusion Protocol Lidocaine 1 patch 07/14/22 12:00 07/14/22 19:52 Lidocaine 5% Pat ch TOPICAL Not Given [id number] [facility] Morphine Sulfate 2 mg 07/14/22 04:55 07/15/22 03:56 Morphine 4 Mg/Ml Sdv 1 Ml IVP 2 mg Q4H PRN Administration SEVERE PAIN Mupirocin 1 applic 07/14/22 18:00 07/14/22 18:27 Mupirocin Oint 2 2 Gm NASAL Not Given BID [facility] Nicotine Polacrile x 4 mg 07/14/22 03:48 07/14/22 11:34 Nicotine 4 Mg Lo zenge MUCOUS MEM 4 mg Q4H PRN Administration NICOTINE CRAVINGS Ondansetron HCl 4 mg 07/14/22 03:48 07/14/22 06:08 Ondansetron 2 Mg /Ml Sdv 2 Ml IVP 4 mg Q8H PRN Administration vomiting, or N/V if npo Pantoprazole Sodiu m 40 mg 07/14/22 03:48 07/14/22 04:[address] 40 Mg Tablet PO 40 mg DAILY KING Administration Polyethylene Glyco l 17 gm 07/14/22 09:00 07/14/22 18:27 Polyethylene Gly col 3350 Pkt 17 Gm PO Not Given BID KING Vitals/I&O/Wt Last Vital Signs Temp 98.2 F 07/15/22 08:00 Pulse 62 07/15/22 08:00 Resp 18 07/15/22 08:00 BP 92/58 07/15/22 08:00 Pulse Ox 91 07/15/22 08:00 O2 Del Method 07/15/22 08:00 O2 Flow Rate 3 07/15/22 08:00 07/14/22 07/15/22 07/15/22 22:59 06:59 14:59 Intake Total 500 / 1120 1780 / 2900 Output Total 900 / 900 Balance 500 / 1120 880 / 2000 Weight last 48 hrs Weight 55.338 kg Weight 55.338 kg Weight 55.338 kg Physical Exam Const: COMMON NORMALS: patient oriented x3 Resp: COMMON NORMALS: clear to auscultation bilaterally EFFORT & INSPECTION: Yes symmetric chest movement AUSCULTATION: clear to auscultation bilaterally Cardio: COMMON NORMALS: regular rate, regular rhythm, S1 normal heart sound present, S2 normal heart sound present, No gallops present (Cardio), No murmurs present (Cardio), No rub (Cardio) and Peripheral pulses 2+ throughout RATE: regular rate RHYTHM: regular rhythm HEART SOUNDS: S1 normal heart sound present and S2 normal heart sound present PERIPHERAL PULSES: Peripheral p ulses 2+ throughout GI: COMMON NORMALS: Normal to inspection, nondistended, normoactive bowel sounds present, Soft to palpation, non-tender, No hepatosplenomegaly present and no masses AUSCULTATION: Yes normoactive bowel sounds PALPATION: Yes Soft to palpation and Yes No hepatosplenomegaly present RECTAL EXAM: deferred Extremity: COMMON NORMALS: no clubbing, cyanosis or edema and no pedal edema NARRATIVE EXTREMITY EXAM: Noted redness and swelling in the mid right posterior forearm, right third digit of hand: Has dry ulcer, with some swelling Neuro: COMMON NORMALS: patient oriented x3 Data : 07/15/22 09:03 07/15/22 09:03 Micro: Microbiology 07/13/22 01:20 Blood Culture - Preliminary Blood 07/13/22 01:18 Blood Culture - Preliminary Blood NEGATIVE TO DATE 07/14/22 06:01 MRSA Culture - Final Nose 07/14/22 01:36 Legionella Urinary Antigen - Final Urine,Clean Catch Bacterial Antigens - Final A&P Assessment and plan (1) UTI (urinary tract infection): (2) Sepsis: (3) Pneumonia: Qualifiers: Laterality: right Lung location: lower lobe of lung Pneumonia type: due to unspecified organism Qualified Code(s): J18.9 - Pneumonia, unspecified organism (4) Transaminitis: (5) Fall: Plan 56-year-old female with past medical history of RA, Raynaud's disease smoking addiction, was brought in with chief complaint of productive cough, patient also states that she has recent history of a spider bite which has resulted in right posterior forearm redness and swelling. Upon arrival in the ER she was found to be hypotensive requiring fluid boluses. Currently she is being managed for: Assessment Severe sepsis: Likely secondary to pneumonia, UTI: Transaminitis: Likely secondary to hep C Right third digit fingertip ulceration History of RA History of Raynaud's Transaminitis Fall Smoking addiction Plan: CT Abdomen And Pelvis Without Contrast: Heterogeneous hypo and hyperdensities within the kidneys bilaterally, findings that could represent a bilateral pyelonephritis. X-ray chest: Right lower lobe infiltrates, Left mid lung field suspected somewhat focal airspace opacity may reflect a small pneumonic infiltrate no rib fracture. Blood culture Urine culture Soft tissue ultrasound has failed to show any abscess CT hand right without contrast: Multiple digit soft tissue thickening or edema slightly more accentuated at the 3rd digit dorsally and distally.No definite peripherally enhancing fluid collection to suggest abscess. Lucency and potential cortical thinning or destruction of the distal margin of the distal phalanx 3rd digit which may be suggestive of potential early changes of osteomyelitis.? Arterial duplex right upper extremity: Patency of arterial structures without high-grade stenosis or significant atherosclerotic occlusive changes to a level of the ulnar and radial arteries.Diminutive flow velocity and diminutive waveform pattern of the distal right ulnar artery. Findings may imply significant most distal small-vessel occlusive changes. 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 Findings may imply significant most distal small-vessel occlusive changes. Taken the clinical picture into account, I will attribute these changes as a combination of her Raynaud's disease, vascular changes secondary to her longstanding smoking, currently, hep C vasculitis could be other consideration, her ESR CRP is elevated Will empirically discharge her on p.o. antibiotics for 2 weeks, and let her follow-up with wound care clinic as outpatient, to assess the response to the antibiotic. Currently we will continue with ceftriaxone and azithromycin for now. Mupirocin for MRSA nare For history of hep C: Follow hep C RNA PCR: Make outpatient GI appointment for: Further management. 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
[2022-07-15 11:07] VITALS: BP 92/58; PULSE 62; RESP 18; TEMP 36.8; O2SAT 91
[2022-07-18 22:28] LABS: HEP C RNA Viral Load Quant 375000 IU/mL (NOT DETECTED); HEP C RNA Viral Load Quant 5.57 Log IU/mL (NOT DETECTED)
== END 2022-07-15 11:07 | disposition left against medical advice (07) ==
LOC: ER 07-14 02:20 → ER IP 07-14 02:40 → ICU 07-14 11:06 → MEDSURG 07-14 23:15 → ER IP 07-15 12:58 → ICU 07-15 12:58 → MEDSURG 07-15 12:58
PROVIDERS: Admitting Provider Internal Medicine; Emergency Provider Nurse Practitioner Family; PCP Physician Assistant Medical; Visit Provider Internal Medicine
DX: A41.9 Sepsis, unspecified organism (principal); N39.0 Urinary tract infection, site not specified; J18.9 Pneumonia, unspecified organism; R74.01 Elevation of levels of liver transaminase levels; W19.XXXA Unspecified fall, initial encounter; M06.9 Rheumatoid arthritis, unspecified; F17.210 Nicotine dependence, cigarettes, uncomplicated; J44.9 Chronic obstructive pulmonary disease, unspecified; E87.6 Hypokalemia; K59.00 Constipation, unspecified; Z91.81 History of falling
CPT/HCPCS: 36415; 71046; 72100; 72170; 73201; 74176; 76705; 76882; 80053; 80074; 81001; 82533; 83605; 83735; 84145; 85025; 85651; 86140; 86403; 87040; 87070; 87077; 87086; 87150; 87186; 87205; 87426; 87449; 87522; 87641; 93931; 96365; 96367; 96372; 96375; 96376; 99285; G0378; J0456; J0696; J1650; J1720; J2270; J2405; J7030; J7040; J7050; Q9967